=== PATIENT | female | born 1960 | race Caucasian/White ===

== ENCOUNTER → 2025-06-23 07:33 | Outpatient (CLI) | payer OTHER, SELFPAY ==
--- NOTE | 2025-06-23 07:34 | DI.MRI.S_ITS ---
PROCEDURE: MR LUMBAR SPINE WO CON INDICATIONS: low back pain radiating to right lower limb paresthesia TECHNIQUE: Noncontrast sagittal T1 spin echo and T2 fast echo, sagittal STIR, and T2 fast spin echo through the lumbar spine. In cases with scoliosis, additional coronal T2 fast spin echo may be performed. COMPARISON: None. FINDINGS: Image quality: Excellent. Alignment and Curvature: Left lumbar curvature on supine exam, centered at L3- 4. Mild, 4 mm, anterolisthesis of L4 on L5.. Bone Marrow: Marrow is of normal overall signal. No acute vertebral body compression fractures. Spinal Cord: Conus medullaris terminates at the L1 level. Visualized cord demonstrates normal signal and size. 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 Paraspinous Soft Tissues: No paravertebral masses. T12-L1: Normal appearance. L1-L2: Maintained disc height. No spinal canal or neural foraminal stenosis. Mild bilateral facet arthrosis. L2-L3: Degenerated, symmetric disc bulge indents anterior thecal sac the but does not result in significant spinal canal stenosis. Mild bilateral facet arthrosis. No neural foraminal stenosis. L3-L4: Severe spinal canal stenosis due to symmetric disc bulge, severe bilateral facet arthrosis, ligamentum flavum thickening, and epidural lipomatosis. Mild bilateral neural foraminal stenosis due to facet arthrosis. L4-L5: Moderate spinal canal stenosis due to anterolisthesis disc uncovering, ligamentum flavum thickening, and severe bilateral facet arthrosis. Mild bilateral neural foraminal stenosis due to anterolisthesis and facet arthrosis. L5-S1: No spinal canal stenosis. Right extraforaminal annular fissure. Severe bilateral facet arthrosis with ligamentum flavum thickening. No neural foraminal stenosis. IMPRESSION: 1. Multilevel spinal canal stenosis is severe at L3-4 and moderate at L4-5. 2. Mild multilevel neural foraminal stenosis. 3. Right extraforaminal annulus tear of the L5-S1 intervertebral disc. No herniation. Dictated by: Darshan Garza M.D. on 06/23/2025 at 11:32 Approved by: Darshan Garza M.D. on 06/23/2025 at 11:37
== END ==
LOC: MRI 07:34
PROVIDERS: PCP Physician Assistant; Referring Provider Physician Assistant; Visit Provider Physical Medicine & Rehabilitation
DX: M47.27 Other spondylosis with radiculopathy, lumbosacral region (principal); M47.26 Other spondylosis with radiculopathy, lumbar region; M48.061 Spinal stenosis, lumbar region without neurogenic claudication; R20.2 Paresthesia of skin
CPT/HCPCS: 72148

== ENCOUNTER 2025-08-10 07:05 | Outpatient (CLI) | payer OTHER, SELFPAY ==
[2025-08-10 07:45] VITALS: BP 146/80; PULSE 86; RESP 16; TEMP 36.7; O2SAT 95
[2025-08-10 08:20] VITALS: BP 162/83; PULSE 92; RESP 18; O2SAT 97
[2025-08-10] MEDS: LIDOCAINE 1% (PF) 5 ML 10 ML INJ (08:28)
[2025-08-10 08:29] VITALS: BP 162/93; PULSE 81; RESP 17; O2SAT 96
[2025-08-10 08:34] VITALS: BP 149/77; PULSE 82; RESP 16; O2SAT 98
--- NOTE | 2025-08-10 11:55 | PM.PROC.IR.1 ---
Date/Time/Diagnoses Date of procedure: 08/10/25 Time of procedure: 08:00 Pre-procedure diagnosis: Lumbosacral radiculopathy Post-procedure diagnosis: same Procedure Notes Procedure: Interlaminar epidural steroid injection L5-S1 Indications: Lumbosacral radiculopathy Physician: Too Hassan Total sedation minutes: 0 Complications: none Procedure in detail & Post-procedure care: Patient is here for the planned procedure today as noted. No significant change since the last office visit. For additional clinical scenario please see those office notes. Focused exam: Vital signs reviewed as charted on intake. Gen: Well developed. No acute distress. CV: RRR, no M/R/G Chest: Non-labored breathing, CTAB. Psych: Alert and well-oriented. Mood/Affect: normal. Patient suitable for the planned procedure today: Yes === The following procedure was performed in the office today: Lumbar Epidural Steroid Injection with fluoroscopic guidance - Interlaminar approach (42983) Levels Treated: [L5-S1] Approach: interlaminar Soft tissue: [1% lidocaine 2 mL] Test dose: [1% lidocaine 1 mL] Injectate: 0.75 mL of Depo-Medrol (80mg/mL) in 1.25 mL 1% lidocaine and 1 mL normal saline Fluoroscopy Agent: Isovue 300-M 1.5 mL Notes: Right paramedian. 3.5 in 20 gauge Touhy needle utilized and adequate. Preprocedure pain 3/10, postprocedure pain 3/10. We discussed planned EMG and she has not yet obtained, we will work on it. Procedure: After discussing the risks, benefits, and alternatives to the procedure, the patient expressed understanding and wished to proceed. The risks include but are not limited to infection, allergic reaction, nerve damage, stroke, paralysis, epidural hematoma, syncope, headache, respiratory or cardiac arrest, spinal cord injury, and scar formation. Informed consent was obtained and all patient questions were answered. The patient was brought to the procedure suite and placed in the prone position. A pre-procedural pause was conducted to verify: correct patient identity, procedure to be performed and as applicable, correct side and site, correct patient position, and any special requirements. Using a paramedian approach from the side noted above, the region overlying the target was localized under fluoroscopic visualization and the soft tissues overlying this structure were infiltrated with the anesthetic listed above. With fluoroscopic guidance, a #20 gauge Tuohy needle (unless otherwise noted) was inserted into the epidural space using a paramedian approach. The epidural space was localized utilizing intermittent multiplanar fluoroscopic guidance and loss of resistance technique. After negative aspiration, the contrast noted above was injected into the epidural space and the flow of contrast was observed, confirming epidural spread without evidence of intravascular or intrathecal spread. Multi-planar radiographs were obtained for documentation purposes. A test dose of lidocaine was injected into the above noted epidural space, and the patient was observed for 30-60 seconds. No sensory deficits were reported and normal lower extremity motor function was noted. Subsequently, the injectate as noted above was administered into the level noted above. The patient tolerated the procedure well and was discharged after an appropriate period of observation. If there are any complications, the patient was instructed to call us. The patient is to follow-up with the requesting provider in 2-3 weeks. This note was compiled using voice recognition software and therefore may contain typos. Please contact the author with any questions or concerns.
== END 2025-08-10 08:41 | disposition home or self-care (01) ==
LOC: RAD 07:07
PROVIDERS: PCP Physician Assistant; Referring Provider Physical Medicine & Rehabilitation; Visit Provider Physical Medicine & Rehabilitation
DX: M54.17 Radiculopathy, lumbosacral region (principal)
CPT/HCPCS: 62323; J1010

== ENCOUNTER → 2025-09-29 08:53 | Outpatient (CLI) | payer OTHER, SELFPAY ==
--- NOTE | 2025-09-29 08:54 | DI.RAD.S_ITS ---
PROCEDURE: XR LUMBAR SPINE 2-3V INDICATIONS: listhesis TECHNIQUE: 3 lateral views of the lumbar spine were acquired. COMPARISON: None. FINDINGS: Bones: 5 [id number] vertebrae are present. There is 6 mm anterolisthesis of L4 on L5. Degenerative endplate changes and bilateral facet arthrosis throughout lumbar spine is seen. No vertebral body compression fractures. No suspicious bony lesions. Decreased range of motion on lateral flexion and extension views are seen with preserved lumbar spine alignment. Soft tissues: Overlying bowel gas pattern is normal. No suspicious soft tissue calcifications. IMPRESSION: Mild degenerative disc disease throughout lumbar spine. 6 mm anterolisthesis of L4 on L5. No acute vertebral body compression fracture. Decreased range of motion on lateral flexion and extension views with preserved lumbar spine alignment. Dictated by: Luis Renae M.D. on 09/29/2025 at 12:21 Approved by: Luis Renae M.D. on 09/29/2025 at 12:22
== END ==
PROVIDERS: PCP Physician Assistant; Referring Provider Physical Medicine & Rehabilitation; Visit Provider Physical Medicine & Rehabilitation
DX: M47.816 Spondylosis without myelopathy or radiculopathy, lumbar region (principal); M51.369 Other intervertebral disc degeneration, lumbar region without mention of lumbar back pain or lower extremity pain; M43.16 Spondylolisthesis, lumbar region
CPT/HCPCS: 72100